=== PATIENT | female | born 1940 | race Caucasian/White ===

== ENCOUNTER 2020-08-31 00:57 | Emergency (ER) | payer OTHER ==
[2020-08-31 01:31] LABS: HEMOGLOBIN 12.5 gm/dl (12.3-15.3); RED BLOOD COUNT 3.88 M/UL (4.00-5.10)
[2020-08-31 01:56] LABS: BUN/CREATININE RATIO 31 (0-10)
[2020-08-31 04:05] LABS: HEMOGLOBIN 10.6 gm/dl (12.3-15.3)
[2020-08-31 07:21] LABS: HEMOGLOBIN 9.1 gm/dl (12.3-15.3)
== END 2020-08-31 09:10 ==
LOC: ER1 00:57
PROVIDERS: Emergency Medicine
DX: K92.2 Gastrointestinal hemorrhage, unspecified (principal); I48.91 Unspecified atrial fibrillation; K21.9 Gastro-esophageal reflux disease without esophagitis; J45.909 Unspecified asthma, uncomplicated; E78.5 Hyperlipidemia, unspecified; Z88.2 Allergy status to sulfonamides; Z88.5 Allergy status to narcotic agent; Z88.8 Allergy status to other drugs, medicaments and biological substances; Z20.822 Contact with and (suspected) exposure to COVID-19
CPT/HCPCS: 36430; 80053; 82550; 82553; 83605; 83690; 83874; 84484; 85014; 85018; 85025; 85610; 85730; 86850; 86900; 86901; 86927; 93005; 96374; 99285; C9132; P9017; Q9967; U0002

== ENCOUNTER 2020-09-24 07:35 | Emergency (ER) | payer OTHER ==
[2020-09-24 08:40] LABS: HEMOGLOBIN 10.3 gm/dl (12.3-15.3); RED BLOOD COUNT 3.43 M/UL (4.00-5.10); WHITE BLOOD COUNT 9.2 K/UL (4.5-11.0)
[2020-09-24 09:00] LABS: BUN/CREATININE RATIO 25 (0-10)
[2020-09-24] MEDS ORDERED: HYDROCODON-ACE1 EAC4 PO (10:10)
[2020-09-24] MEDS ORDERED: CEPHALEXIN500 MG PO (10:13)
== END 2020-09-24 09:29 | disposition home or self-care (01) ==
LOC: ER1 07:35
PROVIDERS: Emergency Medicine
DX: M25.531 Pain in right wrist (principal)
CPT/HCPCS: 73110; 73130; 80053; 84550; 85025; 85652; 86140; 99283

== ENCOUNTER 2020-12-13 12:48 | Emergency (ER) | payer OTHER ==
[~2020-12-13] VITALS: Ht 160 cm; Wt 79.6 kg
[~2020-12-13 12:48] MED LIST: CEPHALEXIN500 MG PO; HYDROCODON-ACE1 EAC4 PO
[2020-12-13 14:57] LABS: HEMOGLOBIN 13.6 gm/dl (12.3-15.3); RED BLOOD COUNT 4.71 M/UL (4.00-5.10); WHITE BLOOD COUNT 9.4 K/UL (4.5-11.0)
[2020-12-13 15:24] LABS: BUN/CREATININE RATIO 21 (0-10)
[2020-12-13] MEDS ORDERED: LIPITOR TAB 1010 MG PO (18:12)
[2020-12-13] MEDS ORDERED: CLOPIDOGREL75 MG PO (18:12)
[2020-12-13] MEDS ORDERED: AVAPRO300 MG PO (18:13)
[2020-12-13] MEDS ORDERED: DILTIAZEM 24HR360 MG PO (18:14)
[2020-12-13] MEDS ORDERED: PROTONIX40 MG PO (18:14)
[2020-12-13] MEDS ORDERED: LASIX20 MG PO (18:15)
[2020-12-14 03:41] LABS: HEMOGLOBIN 12.1 gm/dl (12.3-15.3)
[2020-12-14 03:42] LABS: RED BLOOD COUNT 4.05 M/UL (4.00-5.10); WHITE BLOOD COUNT 5.6 K/UL (4.5-11.0)
[2020-12-14 04:16] LABS: BUN/CREATININE RATIO 22 (0-10)
[2020-12-14] MEDS ORDERED: ASPIRIN81 MG PO (07:40)
[2020-12-14] MEDS ORDERED: MUCINEX600 MG PO (07:47)
[2020-12-14] MEDS ORDERED: COLON HERBAL C1 EACH PO (07:48)
[2020-12-14] MEDS ORDERED: MIRALAX17 GM PO (07:49)
[2020-12-14] MEDS ORDERED: FLINTSTONES WIT18 MG PO (07:51)
[2020-12-14] MEDS ORDERED: CALTRATE 600 +1 EAC1 PO (07:53)
[2020-12-14] MEDS ORDERED: PEPCID20 MG PO (07:57)
[2020-12-14] MEDS ORDERED: DILTIAZEM ER360 MG PO (07:59)
[2020-12-14] MEDS ORDERED: TYLENOL325 MG PO (09:56)
[2020-12-14] MEDS ORDERED: FLONASE 0.05% N16 GM (18:13)
[2020-12-14] MEDS ORDERED: SPIRIVA RESPIMAT4 GM INH (18:13)
[2020-12-14] MEDS ORDERED: TAMBOCOR 100 M100 MG PO (18:14)
[2020-12-14] MEDS ORDERED: SINGULAIR10 MG PO (18:14)
== END 2020-12-14 10:40 | disposition home or self-care (01) ==
LOC: ER1 12:48 → CDU 15:51
PROVIDERS: Physician Assistant
DX: I48.91 Unspecified atrial fibrillation (principal); E78.5 Hyperlipidemia, unspecified; I10 Essential (primary) hypertension; Z88.5 Allergy status to narcotic agent; Z20.822 Contact with and (suspected) exposure to COVID-19
CPT/HCPCS: 71045; 80048; 80053; 82550; 82553; 83874; 83880; 84439; 84443; 84484; 85025; 93005; 96374; 99285; G0378; U0002

== ENCOUNTER 2021-03-16 10:43 | Emergency (ER) | payer OTHER ==
[~2021-03-16 10:43] MED LIST changes: +ASPIRIN81 MG PO; +AVAPRO300 MG PO; +CALTRATE 600 +1 EAC1 PO; +CLOPIDOGREL75 MG PO; +COLON HERBAL C1 EACH PO; +DILTIAZEM 24HR360 MG PO; +DILTIAZEM ER360 MG PO; +FLINTSTONES WIT18 MG PO; +FLONASE 0.05% N16 GM; +LASIX20 MG PO; +LIPITOR TAB 1010 MG PO; +MIRALAX17 GM PO; +MUCINEX600 MG PO; +PEPCID20 MG PO; +PROTONIX40 MG PO; +SINGULAIR10 MG PO; +SPIRIVA RESPIMAT4 GM INH; +TAMBOCOR 100 M100 MG PO; +TYLENOL325 MG PO
[2021-03-16 12:03] LABS: HEMOGLOBIN 14.2 gm/dl (12.3-15.3); RED BLOOD COUNT 4.33 M/UL (4.00-5.10)
[2021-03-16 12:18] LABS: BUN/CREATININE RATIO 26 (0-10)
== END 2021-03-16 15:59 | disposition home or self-care (01) ==
LOC: ER1 10:43
PROVIDERS: Physician Assistant Medical
DX: K57.30 Diverticulosis of large intestine without perforation or abscess without bleeding (principal); I48.91 Unspecified atrial fibrillation; I11.9 Hypertensive heart disease without heart failure; Z79.82 Long term (current) use of aspirin; Z88.5 Allergy status to narcotic agent
CPT/HCPCS: 80053; 82272; 83605; 85025; 85610; 86850; 86900; 86901; 99284; Q9967

== ENCOUNTER 2021-07-06 01:49 | Inpatient (IN) | payer OTHER ==
[~2021-07-06] VITALS: Ht 160 cm; Wt 80.3 kg
[~2021-07-06 01:49] MED LIST changes: -MIRALAX17 GM PO
[2021-07-06 03:17] LABS: BUN/CREATININE RATIO 34 (0-10)
[2021-07-06 04:36] LABS: HEMOGLOBIN 12.3 gm/dl (12.3-15.3); RED BLOOD COUNT 3.95 M/UL (4.00-5.10); WHITE BLOOD COUNT 6.1 K/UL (4.5-11.0)
[2021-07-06] MEDS ORDERED: MIRALAX17 GM PO (07:49)
[2021-07-06] MEDS ORDERED: SPIRIVA RESPIMAT4 GM INH (12:07)
[2021-07-06] MEDS ORDERED: FOLIC ACID 1 MG1 MG PO (12:08)
[2021-07-06] MEDS ORDERED: METHOTREXATE T2.5 MG PO (12:10)
[2021-07-06] MEDS ORDERED: ASPIRIN EC81 MG PO (12:15)
[2021-07-06] MEDS ORDERED: PROBIOTIC1 EAC2 PO (12:15)
[2021-07-06 23:40] LABS: HEMOGLOBIN 8.2 gm/dl (12.3-15.3)
[2021-07-07 04:12] LABS: HEMOGLOBIN 7.6 gm/dl (12.3-15.3)
[2021-07-07 04:14] LABS: RED BLOOD COUNT 2.38 M/UL (4.00-5.10); WHITE BLOOD COUNT 3.8 K/UL (4.5-11.0)
[2021-07-07 04:27] LABS: BUN/CREATININE RATIO 23 (0-10)
[2021-07-07 12:40] LABS: HEMOGLOBIN 9.5 gm/dl (12.3-15.3)
--- NOTE | 2021-07-07 17:37 | NUR ---
PT WITH LARGE BLOODY BM WITH MANY CLOTS. MD NOTIFIED WITH ORDER FOR BLEEDING SCAN OBTAINED. [facility] NOTIFIED WITH MEDS ORDERED AND [facility] TEAM CALLED IN FOR SCAN. PT TAKEN TO [facility] FOR SCAN VIA BED.
--- NOTE | 2021-07-07 20:09 | NUR ---
BLEEDING SCAN RESULTS CALLED TO DR SEPULVEDA. ORDERS FOR STAT TRANSFUSION OF PRBCS, AND CONSENT FOR COLONOSCOPY. PT AND PT'S SISTER OXANA COLLIER AWARE OF BLEEDING AND COLONOSCOPY. EXPLAINED NEED FOR POSSIBLE REMOVAL OF COLON
[2021-07-08 05:02] LABS: HEMOGLOBIN 7.8 gm/dl (12.3-15.3); RED BLOOD COUNT 2.48 M/UL (4.00-5.10)
[2021-07-08 05:04] LABS: WHITE BLOOD COUNT 7.3 K/UL (4.5-11.0)
[2021-07-08 05:15] LABS: BUN/CREATININE RATIO 23 (0-10)
[2021-07-08 14:20] LABS: HEMOGLOBIN 6.9 gm/dl (12.3-15.3)
[2021-07-08 23:45] LABS: HEMOGLOBIN 9.7 gm/dl (12.3-15.3)
[2021-07-09 04:48] LABS: HEMOGLOBIN 9.2 gm/dl (12.3-15.3)
[2021-07-09 04:53] LABS: RED BLOOD COUNT 3.02 M/UL (4.00-5.10)
[2021-07-09 05:08] LABS: BUN/CREATININE RATIO 19 (0-10)
[2021-07-09 16:55] LABS: HEMOGLOBIN 9.7 gm/dl (12.3-15.3); RED BLOOD COUNT 3.13 M/UL (4.00-5.10); WHITE BLOOD COUNT 6.8 K/UL (4.5-11.0)
[2021-07-10 05:05] LABS: HEMOGLOBIN 8.9 gm/dl (12.3-15.3); RED BLOOD COUNT 2.84 M/UL (4.00-5.10); WHITE BLOOD COUNT 5.2 K/UL (4.5-11.0)
[2021-07-10 05:16] LABS: BUN/CREATININE RATIO 15 (0-10)
== END 2021-07-10 10:47 | disposition home or self-care (01) | DRG 378 ==
LOC: ER1 01:49 → CCU 05:40 → CDU 05:40 → CCU 10:14
PROVIDERS: Internal Medicine Gastroenterology; Physician Assistant; Physician Assistant Medical; Student in an Organized Health Care Education/Training Program; ADMIT Internal Medicine
PROC: 0DJD8ZZ Inspection of Lower Intestinal Tract, Via Natural or Artificial Opening Endoscopic (ICD-10-PCS; 2021-07-07)
PROC: 0W3P8ZZ Control Bleeding in Gastrointestinal Tract, Via Natural or Artificial Opening Endoscopic (ICD-10-PCS; 2021-07-07 11:00)
PROC: 30233N1 Transfusion of Nonautologous Red Blood Cells into Peripheral Vein, Percutaneous Approach (ICD-10-PCS; principal; 2021-07-08)
DX: K57.33 Diverticulitis of large intestine without perforation or abscess with bleeding (principal); I48.20 Chronic atrial fibrillation, unspecified; D62 Acute posthemorrhagic anemia; M06.9 Rheumatoid arthritis, unspecified; Z20.822 Contact with and (suspected) exposure to COVID-19; I10 Essential (primary) hypertension; Z96.612 Presence of left artificial shoulder joint; Z96.643 Presence of artificial hip joint, bilateral; K80.20 Calculus of gallbladder without cholecystitis without obstruction; R91.8 Other nonspecific abnormal finding of lung field; Z96.653 Presence of artificial knee joint, bilateral; K64.4 Residual hemorrhoidal skin tags; K21.00 Gastro-esophageal reflux disease with esophagitis, without bleeding; K76.89 Other specified diseases of liver; J47.9 Bronchiectasis, uncomplicated; Z95.0 Presence of cardiac pacemaker; Z98.890 Other specified postprocedural states; Z88.5 Allergy status to narcotic agent; Z82.49 Family history of ischemic heart disease and other diseases of the circulatory system; Z83.3 Family history of diabetes mellitus; Z79.899 Other long term (current) drug therapy; Z88.2 Allergy status to sulfonamides; Z88.8 Allergy status to other drugs, medicaments and biological substances; Z79.01 Long term (current) use of anticoagulants; Z79.82 Long term (current) use of aspirin
CPT/HCPCS: 36415; 73600; 73620; 78278; 80048; 80053; 82270; 83735; 85014; 85018; 85025; 85027; 86850; 86900; 86901; 86920; 97116; 97161; 99285; A9560; C9113; G0378; J0171; J1642; J2250; J2370; J2704; J7040; J7050; P9016; Q9967; U0002

== ENCOUNTER → 2021-11-22 | Outpatient (CLI) | payer OTHER ==
[~2021-11-22] MED LIST changes: +ASPIRIN EC81 MG PO; +FOLIC ACID 1 MG1 MG PO; +METHOTREXATE T2.5 MG PO; +MIRALAX17 GM PO; +PROBIOTIC1 EAC2 PO; +TENORMIN25 MG PO
== END ==
LOC: KOH-I 16:29
DX: M25.572 Pain in left ankle and joints of left foot (principal); M15.0 Primary generalized (osteo)arthritis; M79.10 Myalgia, unspecified site; D89.89 Other specified disorders involving the immune mechanism, not elsewhere classified; M06.09 Rheumatoid arthritis without rheumatoid factor, multiple sites
CPT/HCPCS: 73610